=== PATIENT | female | born 1960 | race Caucasian/White ===

== ENCOUNTER 2017-01-17 12:50 | Inpatient (IN) | payer MEDICARE ==
[~2017-01-17] VITALS: Ht 162.6 cm; Wt 72.1 kg
[~2017-01-17 12:50] MED LIST: ALBU8.5H3 INH; ASPI-515 PO; BUPR150T73 PO; BUPR1PAT3 TD; CLON0.5T20 PO; DESV100T PO; LAMO150T PO; LISI2.5T PO; OMEP-110 PO; OXYC-302 PO; QUET200T PO; QUET50TA PO; RISP2TAB3 PO; ROSU5TAB PO; TOPI-33 PO
[2017-01-17] MEDS ORDERED: ONDANSETRON 2MG/ML, 2ML ONE (14:53)
[2017-01-17] MEDS ORDERED: CEFTRIAXONE PMX 1GM/50ML 50 ML ONE (14:53)
[2017-01-17] MEDS ORDERED: HYDROmorphone 1 MG/ML, 1ML ONE (14:53)
[2017-01-17] MEDS ORDERED: SODIUM CHLORIDE FLUSH 10ML SYR IVF ONE (15:00)
[2017-01-17] MEDS ORDERED: SODIUM CHLORIDE 0.9% 1,000ML IVBOLUS ONE (15:00)
[2017-01-17] MEDS ORDERED: ONDANSETRON 2MG/ML, 2ML IVPush ONE (15:00)
[2017-01-17] MEDS ORDERED: CEFTRIAXONE 1,000 MG in SODIUM CHLORIDE 0.9% 50 ML IVPB ONE (15:00)
[2017-01-17] MEDS ORDERED: HYDROmorphone 1 MG/ML, 1ML IVPush PRN (15:00)
[2017-01-17 15:16] LABS: ASPARTATE AMINO TRANSFERASE 13 U/L (15-37); BLOOD UREA NITROGEN 9 mg/dL (7-18)
[2017-01-17] MEDS ORDERED: OMNIPAQUE 350 MG/ML, 100ML BOTTLE ONE (15:53)
[2017-01-17] MEDS ORDERED: POLYETHYLENE GLYCOL 17 GM PACKET PO PRN (17:00)
[2017-01-17] MEDS ORDERED: BISACODYL 10 MG SUPP PR PRN (17:00)
[2017-01-17] MEDS ORDERED: ACETAMINOPHEN 325 MG TABLET PO PRN (17:00)
[2017-01-17] MEDS ORDERED: morphine SULFATE 10 MG/ML, 1ML IVPush PRN (17:00)
[2017-01-17] MEDS ORDERED: DOCUSATE 100 MG CAPSULE PO PRN (17:00)
[2017-01-17] MEDS ORDERED: CEFTRIAXONE 1,000 MG in SODIUM CHLORIDE 0.9% 50 ML IV SCH (17:00)
[2017-01-17] MEDS: NICOTINE 7 MG/24 HR PATCH.TD24 TD SCH (18:00)
[2017-01-17] MEDS: SODIUM CHLORIDE 0.9% IV SCH (18:08)
[2017-01-17] MEDS: MAGNESIUM SULFATE IV SCH (18:08)
[2017-01-17] MEDS: POTASSIUM CHLORIDE IV SCH (18:08)
[2017-01-17] MEDS: BENZONATATE 100 MG CAPSULE PO SCH ×2 (18:20→20:17)
[2017-01-17] MEDS: ENOXAPARIN 40 MG/0.4 ML SQ SCH (18:20)
[2017-01-17] MEDS: AZITHROMYCIN 500 MG in SODIUM CHLORIDE 0.9% 250 ML IV SCH (18:21)
[2017-01-17] MEDS: KETOROLAC 30 MG/1 ML IVPush PRN (18:45)
[2017-01-17 20:14] VITALS: BP 107/68
[2017-01-17] MEDS: ATORVASTATIN 10 MG TABLET PO SCH (20:17)
[2017-01-17] MEDS: TOPIRAMATE 25 MG TABLET PO SCH (20:17)
[2017-01-17] MEDS: GUAIFENESIN ER 600 MG TABLET PO SCH (20:17)
[2017-01-17] MEDS: QUETIAPINE 200 MG TABLET PO SCH (20:18)
[2017-01-17] MEDS: LAMOTRIGINE 100 MG TABLET PO SCH (20:18)
[2017-01-17] MEDS: TEMPLATE NON-FORMULARY MED. (Desvenlafaxine Succinate** (Pristiq Er**) 100 MG) PO SCH (20:19)
[2017-01-17 20:30] LABS: IS PT STATUS REG ER OR PRE ER? NO
[2017-01-17] MEDS ORDERED: BUPROPION SR 150 MG TABLET PO SCH (21:00)
[2017-01-18 01:30] VITALS: BP 109/65
[2017-01-18] MEDS: KETOROLAC 30 MG/1 ML IVPush PRN ×4 (02:20→20:50)
[2017-01-18 02:36] LABS: BLOOD UREA NITROGEN 9 mg/dL (7-18)
[2017-01-18 02:40] LABS: IS PT STATUS REG ER OR PRE ER? NO
[2017-01-18] MEDS: CEFTRIAXONE PMX 1GM/50ML 50 ML IV SCH ×2 (03:02→14:40)
[2017-01-18] MEDS: SODIUM CHLORIDE 0.9% IV SCH (04:09)
[2017-01-18] MEDS: POTASSIUM CHLORIDE IV SCH (04:09)
[2017-01-18] MEDS: MAGNESIUM SULFATE IV SCH (04:09)
[2017-01-18] MEDS: BUPROPION SR 150 MG TABLET PO SCH ×2 (05:51→14:48)
[2017-01-18] MEDS: ASPIRIN 81 MG TABLET EC PO SCH (05:51)
[2017-01-18 05:57] VITALS: BP 128/83
[2017-01-18] MEDS: ONDANSETRON 2MG/ML, 2ML IVPush PRN ×2 (07:13→20:49)
[2017-01-18 07:21] VITALS: BP 118/61
[2017-01-18] MEDS: OMEPRAZOLE 20 MG CAPSULE.DR PO SCH (07:27)
[2017-01-18] MEDS: GUAIFENESIN ER 600 MG TABLET PO SCH ×2 (09:03→21:26)
[2017-01-18] MEDS: BENZONATATE 100 MG CAPSULE PO SCH ×3 (09:04→21:25)
[2017-01-18] MEDS: LISINOPRIL 5 MG TABLET PO SCH (09:04)
[2017-01-18] MEDS: TOPIRAMATE 25 MG TABLET PO SCH ×2 (09:06→21:26)
[2017-01-18] MEDS: QUETIAPINE 100MG TABLET PO SCH (09:08)
[2017-01-18] MEDS: TEMPLATE NON-FORMULARY MED. (Desvenlafaxine Succinate** (Pristiq Er**) 100 MG) PO SCH ×2 (09:08→21:00)
[2017-01-18 14:20] VITALS: BP 107/74
[2017-01-18] MEDS: NICOTINE 7 MG/24 HR PATCH.TD24 TD SCH (15:11)
[2017-01-18] MEDS: AZITHROMYCIN 500 MG in SODIUM CHLORIDE 0.9% 250 ML IV SCH (18:23)
[2017-01-18] MEDS: ENOXAPARIN 40 MG/0.4 ML SQ SCH (18:24)
[2017-01-18] MEDS ORDERED: VANCOMYCIN PER PHARMACY MC PRN (18:30)
[2017-01-18 18:35] VITALS: BP 103/70
[2017-01-18] MEDS ORDERED: PHARMACOKINETIC CONSULTATION MC ONE (19:00)
[2017-01-18] MEDS ORDERED: PHARMACOKINETIC MONITORING MC PRN (19:00)
[2017-01-18] MEDS ORDERED: VANCOMYCIN 1,400 MG in SODIUM CHLORIDE 0.9% 250 ML IV SCH (19:00)
[2017-01-18] MEDS: LAMOTRIGINE 100 MG TABLET PO SCH (21:25)
[2017-01-18] MEDS: QUETIAPINE 200 MG TABLET PO SCH (21:25)
[2017-01-18] MEDS: ATORVASTATIN 10 MG TABLET PO SCH (21:25)
[2017-01-18] MEDS: ZOLPIDEM 5MG TABLET PO PRN (21:38)
[2017-01-19 02:50] VITALS: BP 127/89
[2017-01-19] MEDS: CEFTRIAXONE PMX 1GM/50ML 50 ML IV SCH ×2 (03:04→14:50)
[2017-01-19] MEDS: BUPROPION SR 150 MG TABLET PO SCH ×2 (04:59→14:50)
[2017-01-19] MEDS: KETOROLAC 30 MG/1 ML IVPush PRN ×3 (04:59→21:45)
[2017-01-19] MEDS: ASPIRIN 81 MG TABLET EC PO SCH (04:59)
[2017-01-19 05:28] LABS: BLOOD UREA NITROGEN 8 mg/dL (7-18)
[2017-01-19 06:57] VITALS: BP 113/62
[2017-01-19] MEDS: GUAIFENESIN ER 600 MG TABLET PO SCH ×2 (08:47→20:15)
[2017-01-19] MEDS: OMEPRAZOLE 20 MG CAPSULE.DR PO SCH (08:47)
[2017-01-19] MEDS: LISINOPRIL 5 MG TABLET PO SCH (08:48)
[2017-01-19] MEDS: BENZONATATE 100 MG CAPSULE PO SCH ×3 (08:49→20:16)
[2017-01-19] MEDS: TOPIRAMATE 25 MG TABLET PO SCH ×2 (08:49→20:16)
[2017-01-19] MEDS: QUETIAPINE 100MG TABLET PO SCH (08:49)
[2017-01-19] MEDS: TEMPLATE NON-FORMULARY MED. (Desvenlafaxine Succinate** (Pristiq Er**) 100 MG) PO SCH ×2 (09:30→20:18)
[2017-01-19] MEDS: VANCOMYCIN 1,400 MG in SODIUM CHLORIDE 0.9% 250 ML IV SCH ×2 (12:27→23:55)
[2017-01-19] MEDS: GUAIFENESIN/DM 200-20MG, 10ML UDC PO PRN (13:20)
[2017-01-19 14:08] VITALS: BP 117/70
[2017-01-19] MEDS: NICOTINE 7 MG/24 HR PATCH.TD24 TD SCH (16:32)
[2017-01-19] MEDS: ENOXAPARIN 40 MG/0.4 ML SQ SCH (17:16)
[2017-01-19] MEDS: AZITHROMYCIN 500 MG in SODIUM CHLORIDE 0.9% 250 ML IV SCH (17:16)
[2017-01-19 18:51] VITALS: BP 108/69
[2017-01-19] MEDS: ONDANSETRON 2MG/ML, 2ML IVPush PRN (20:14)
[2017-01-19] MEDS: LAMOTRIGINE 100 MG TABLET PO SCH (20:15)
[2017-01-19] MEDS: ATORVASTATIN 10 MG TABLET PO SCH (20:15)
[2017-01-19] MEDS: QUETIAPINE 200 MG TABLET PO SCH (20:15)
[2017-01-19] MEDS: ZOLPIDEM 5MG TABLET PO PRN (21:45)
[2017-01-20] MEDS: CEFTRIAXONE PMX 1GM/50ML 50 ML IV SCH ×2 (03:00→15:16)
[2017-01-20] MEDS: GUAIFENESIN/DM 200-20MG, 10ML UDC PO PRN ×3 (04:30→23:55)
[2017-01-20] MEDS: KETOROLAC 30 MG/1 ML IVPush PRN ×2 (04:30→17:32)
[2017-01-20] MEDS: ASPIRIN 81 MG TABLET EC PO SCH (05:17)
[2017-01-20] MEDS: BUPROPION SR 150 MG TABLET PO SCH ×2 (05:18→15:17)
[2017-01-20 07:48] VITALS: BP 132/81
[2017-01-20] MEDS: GUAIFENESIN ER 600 MG TABLET PO SCH ×2 (07:48→21:06)
[2017-01-20] MEDS: OMEPRAZOLE 20 MG CAPSULE.DR PO SCH (07:48)
[2017-01-20] MEDS: BENZONATATE 100 MG CAPSULE PO SCH ×3 (07:49→21:06)
[2017-01-20] MEDS: QUETIAPINE 100MG TABLET PO SCH (07:49)
[2017-01-20] MEDS: LISINOPRIL 5 MG TABLET PO SCH (07:49)
[2017-01-20] MEDS: TOPIRAMATE 25 MG TABLET PO SCH ×2 (07:50→21:06)
[2017-01-20] MEDS: Desvenlafaxine Succinate** (Pristiq Er**) 100 MG) PO SCH ×2 (07:50→21:00)
[2017-01-20] MEDS ORDERED: METHOCARBAMOL 500 MG TABLET PO PRN (08:30)
[2017-01-20] MEDS: ONDANSETRON 2MG/ML, 2ML IVPush PRN (12:52)
[2017-01-20] MEDS: OXYcodone/APAP 5/325MG TABLET PO PRN ×2 (12:52→23:50)
[2017-01-20 14:21] VITALS: BP 131/80
[2017-01-20] MEDS: AZITHROMYCIN 500 MG in SODIUM CHLORIDE 0.9% 250 ML IV SCH (17:24)
[2017-01-20] MEDS: NICOTINE 7 MG/24 HR PATCH.TD24 TD SCH (17:32)
[2017-01-20] MEDS: ENOXAPARIN 40 MG/0.4 ML SQ SCH (17:32)
[2017-01-20 18:51] VITALS: BP 116/72
[2017-01-20] MEDS: ATORVASTATIN 10 MG TABLET PO SCH (21:06)
[2017-01-20] MEDS: ZOLPIDEM 5MG TABLET PO PRN (21:06)
[2017-01-20] MEDS: LAMOTRIGINE 100 MG TABLET PO SCH (21:06)
[2017-01-20] MEDS: QUETIAPINE 200 MG TABLET PO SCH (21:06)
[2017-01-21 01:22] VITALS: BP 110/72
[2017-01-21] MEDS: CEFTRIAXONE PMX 1GM/50ML 50 ML IV SCH (02:36)
[2017-01-21] MEDS: KETOROLAC 30 MG/1 ML IVPush PRN ×2 (02:36→09:59)
[2017-01-21] MEDS: ASPIRIN 81 MG TABLET EC PO SCH (05:15)
[2017-01-21] MEDS: BUPROPION SR 150 MG TABLET PO SCH (05:16)
[2017-01-21 06:41] VITALS: BP 128/74
[2017-01-21] MEDS: OMEPRAZOLE 20 MG CAPSULE.DR PO SCH (07:56)
[2017-01-21] MEDS: ONDANSETRON 2MG/ML, 2ML IVPush PRN (07:57)
[2017-01-21] MEDS: LISINOPRIL 5 MG TABLET PO SCH (08:30)
[2017-01-21] MEDS: GUAIFENESIN ER 600 MG TABLET PO SCH (08:30)
[2017-01-21] MEDS: BENZONATATE 100 MG CAPSULE PO SCH (08:30)
[2017-01-21] MEDS: TOPIRAMATE 25 MG TABLET PO SCH (08:30)
[2017-01-21] MEDS: QUETIAPINE 100MG TABLET PO SCH (08:38)
[2017-01-21] MEDS: Desvenlafaxine Succinate** (Pristiq Er**) 100 MG) PO SCH (09:00)
[2017-01-21] MEDS ORDERED: BENZ100C4 PO (09:46)
[2017-01-21] MEDS ORDERED: GUAI600T22 PO (09:46)
[2017-01-21] MEDS ORDERED: GUAI5SYR PO (09:46)
[2017-01-21] MEDS ORDERED: CEFD300C37 PO (09:46)
[2017-01-21] MEDS ORDERED: DOXY100C2 PO (09:46)
== END 2017-01-21 11:23 | disposition home or self-care (01) | DRG 871 ==
LOC: ED 15:33 → EDIP 16:26 → 4WST 17:29
DX: A41.9 Sepsis, unspecified organism (principal); J96.01 Acute respiratory failure with hypoxia; J18.9 Pneumonia, unspecified organism; E87.1 Hypo-osmolality and hyponatremia; J44.0 Chronic obstructive pulmonary disease with (acute) lower respiratory infection; F31.30 Bipolar disorder, current episode depressed, mild or moderate severity, unspecified; J98.11 Atelectasis; E78.00 Pure hypercholesterolemia, unspecified; E78.5 Hyperlipidemia, unspecified; E87.6 Hypokalemia; F17.200 Nicotine dependence, unspecified, uncomplicated; F60.9 Personality disorder, unspecified; F43.10 Post-traumatic stress disorder, unspecified; B95.4 Other streptococcus as the cause of diseases classified elsewhere; I10 Essential (primary) hypertension; Z87.01 Personal history of pneumonia (recurrent); Z71.6 Tobacco abuse counseling; Z90.89 Acquired absence of other organs; Z90.711 Acquired absence of uterus with remaining cervical stump; Z82.49 Family history of ischemic heart disease and other diseases of the circulatory system
CPT/HCPCS: 36415; 71010; 71275; 80048; 80053; 80061; 82565; 83605; 84145; 84484; 84520; 85025; 87040; 87070; 87150; 87205; 93005; 93306; 96365; 96366; 96375; J0456; J0696; J1170; J1650; J1885; J2405; J3370; J3475; J3480; Q9967; J7030; J7050

== ENCOUNTER 2017-04-14 07:26 | Emergency (ER) | payer MEDICARE ==
[~2017-04-14] VITALS: Ht 162.6 cm; Wt 72.0 kg
[~2017-04-14 07:26] MED LIST changes: -ALBU8.5H3 INH; +ALBU8.5H8 INH; +BENZ100C17 PO; -BUPR1PAT3 TD; +BUPR1PAT6 TD; +CEFD300C37 PO; +DOXY100C2 PO; +GUAI5SYR PO; +GUAI600T31 PO; -TOPI-33 PO; +TOPI25TA8 PO
[2017-04-14] MEDS ORDERED: OXYcodone/APAP 5/325MG TABLET ONE (07:52)
[2017-04-14] MEDS ORDERED: OXYcodone/APAP 5/325MG TABLET PO ONE (08:00)
[2017-04-14] MEDS ORDERED: BACITRACIN ZINC OINT 500U/GM, 0.9 GM ONE (08:59)
[2017-04-14 09:06] VITALS: BP 103/83
== END 2017-04-14 09:12 | disposition home or self-care (01) ==
LOC: ED 08:37
DX: S93.421A Sprain of deltoid ligament of right ankle, initial encounter (principal); S20.212A Contusion of left front wall of thorax, initial encounter; S80.211A Abrasion, right knee, initial encounter; I10 Essential (primary) hypertension; E78.00 Pure hypercholesterolemia, unspecified; F17.210 Nicotine dependence, cigarettes, uncomplicated; W01.0XXA Fall on same level from slipping, tripping and stumbling without subsequent striking against object, initial encounter; Y93.01 Activity, walking, marching and hiking; Y92.488 Other paved roadways as the place of occurrence of the external cause; Y99.8 Other external cause status
CPT/HCPCS: 71020; 99284

== ENCOUNTER 2017-04-20 08:57 | Emergency (ER) | payer MEDICARE ==
[~2017-04-20] VITALS: Ht 165.1 cm; Wt 69.0 kg
[2017-04-20 09:03] VITALS: BP 122/87
[2017-04-20] MEDS ORDERED: KETOROLAC 30 MG/1 ML ONE (09:55)
[2017-04-20] MEDS ORDERED: KETOROLAC 30 MG/1 ML IM ONE (10:00)
== END 2017-04-20 11:51 | disposition home or self-care (01) ==
LOC: ED 10:00
DX: R07.89 Other chest pain (principal); I10 Essential (primary) hypertension; E78.00 Pure hypercholesterolemia, unspecified; F17.210 Nicotine dependence, cigarettes, uncomplicated
CPT/HCPCS: 71101; 96372; 99284; J1885

== ENCOUNTER 2017-07-25 09:34 | Emergency (ER) | payer MEDICARE ==
[~2017-07-25] VITALS: Ht 162.6 cm; Wt 69.0 kg
[~2017-07-25 09:34] MED LIST changes: +BENZ-17 PO; -BENZ100C17 PO; -LAMO150T PO; +LAMO150T2 PO
[2017-07-25 09:36] VITALS: BP 134/88
== END 2017-07-25 12:49 | disposition home or self-care (01) ==
LOC: ED 12:35
DX: M54.2 Cervicalgia (principal); G89.29 Other chronic pain; I10 Essential (primary) hypertension; E78.00 Pure hypercholesterolemia, unspecified; Z90.710 Acquired absence of both cervix and uterus; Z87.891 Personal history of nicotine dependence
CPT/HCPCS: 72050; 99284

== ENCOUNTER 2018-02-09 16:19 | Emergency (ER) | payer MEDICARE ==
[~2018-02-09] VITALS: Ht 165.1 cm; Wt 72.0 kg
[2018-02-09 16:33] VITALS: BP 141/94
[2018-02-09] MEDS ORDERED: MIRT45TA4 PO (17:43)
[2018-02-09] MEDS ORDERED: QUET100T PO (17:43)
[2018-02-09] MEDS ORDERED: LAMO150T2 PO (17:43)
== END 2018-02-09 18:09 | disposition home or self-care (01) ==
LOC: ED 16:45
DX: F32.1 Major depressive disorder, single episode, moderate (principal); F41.1 Generalized anxiety disorder; I10 Essential (primary) hypertension
CPT/HCPCS: 99284

== ENCOUNTER → 2018-06-10 | Outpatient (CLI) | payer MEDICARE ==
[~2018-06-10] MED LIST changes: +MIRT45TA61 PO; +QUET100T PO
== END | disposition home or self-care (01) ==
LOC: CFH 11:55
PROVIDERS: ATTEND Nurse Practitioner Family
DX: Z02.9 Encounter for administrative examinations, unspecified (principal)

== ENCOUNTER 2018-08-26 12:18 | Outpatient (CLI) | payer MEDICARE | END 2018-08-26 23:59 | disposition home or self-care (01) | LOC: CFH 12:18 | PROVIDERS: ATTEND Nurse Practitioner Family | DX: R92.2 Inconclusive mammogram (principal) | CPT/HCPCS: 77066; G0279 ==